=== PATIENT | male | born 1970 | race Caucasian/White ===

== ENCOUNTER 2018-12-13 12:24 | Emergency (ER) | payer BC ==
[2018-12-13 12:48] VITALS: BP 126/87
--- NOTE | 2018-12-13 13:10 | UC ---
UC General HPI - HPI Summary HPI Summary: 48-year-old male comes in to clinic today with a chief complaint of perianal pain tailbone pain left lower quadrant pain and fever. Patient started with some pain around the anus more than a week ago. It's been getting worse and he did see his primary care physician 3 days ago on Thursday. They did a rectal exam which the patient said was very painful. He also reports that they checked for blood and there was just a trace of blood. He's tried over-the- counter laxatives and he is having bowel movements however the perianal pain is now also has left lower quadrant and around his tailbone. Yesterday he felt like it a fever and checked his temperature and he reported a temperature of 100.3. He had been eating well until 2 days ago and then his appetite is decreased and he does not feel like eating. Today he feels fatigued. No prior history of abdominal surgeries. No history of ulcerative colitis or irritable bowel. Pain is worse by sitting on the area or transitioning from standing to sitting. - History of Current Complaint Chief Complaint: UCGI Stated Complaint: TAILBONE PAIN Time Seen by Provider: 12/13/18 12:45 Pain Intensity: 4 - Allergy/Home Medications Allergies/Adverse Reactions: Allergies Allergy/AdvReac Type Severity Reaction Status Date / Time No Known Allergies Allergy Verified 12/13/18 12:48 PMH/Surg Hx/FS Hx/Imm Hx Previously Healthy: Yes GI/ History: Gastroesophageal Reflux - Surgical History Surgical History: Yes Surgery Procedure, Year, and Place: RIGHT KNEE ARTHROSCOPY X2 - Family History Known Family History: Positive: Non-Contributory - Social History Alcohol Use: Daily Substance Use Type: None Smoking Status (MU): Former Smoker - Immunization History Most Recent Tetanus Shot: 2011 Review of Systems All Other Systems Reviewed And Are Negative: Yes Constitutional: Positive: Fever, Chills, Fatigue Skin: Positive: Negative Eyes: Positive: Negative ENT: Positive: Negative Respiratory: Positive: Negative Cardiovascular: Positive: Negative Gastrointestinal: Positive: Abdominal Pain, Other - SEE HPI Genitourinary: Positive: Negative Motor: Positive: Negative Neurovascular: Positive: Negative Musculoskeletal: Positive: Negative Neurological: Positive: Negative Psychological: Positive: Negative Is Patient Immunocompromised?: No Physical Exam Triage Information Reviewed: Yes Appearance: Well-Appearing, Well-Nourished, Pain Distress - MODERATE WITH MOVEMENT Vital Signs: Initial Vital Signs Temp 98.4 F 12/13/18 12:42 Pulse 101 12/13/18 12:42 Resp 20 12/13/18 12:42 BP 126/87 12/13/18 12:42 Pulse Ox 100 12/13/18 12:42 Vital Signs Reviewed: Yes Eye Exam: Normal Eyes: Positive: Conjunctiva Clear Neck: Positive: Supple Respiratory: Positive: Lungs clear, Normal breath sounds, No respiratory distress Cardiovascular: Positive: RRR Abdomen Description: Positive: Soft, Other: - Mildly tender left lower quadrant. No rebound. Bowel Sounds: Positive: Hypoactive Male Genital Exam: Positive: Other - On visual examination the patient does have hemorrhoid in the posterior aspect of the anus that is mildly tender to palpation and is firm to palpation. Is not erythematous. See any other soft tissue swellings or erythema. Musculoskeletal: Positive: Strength Intact, ROM Intact Neurological: Positive: Alert, Muscle Tone Normal Psychological: Positive: Age Appropriate Behavior Skin: Positive: Other - On visual examination the patient does have hemorrhoid in the posterior aspect of the anus that is mildly tender to palpation and is firm to palpation. Is not erythematous. See any other soft tissue swellings or erythema. Course/Dx - Course Course Of Treatment: I didn't see a hemorrhoid on examination that was tender to palpation. It is possible that the hemorrhoid is giving all of his pain with radiation to the left upper quadrant however with the reported fever and feeling ill I am concerned about the possibility of a perianal infection and recommended evaluation in the emergency department now. Patient will go by POV. - Diagnoses Provider Diagnosis: Anal pain, Left lower quadrant abdominal pain, Fever Discharge - Sign-Out/Discharge Documenting (check all that apply): Patient Departure All imaging exams completed and their final reports reviewed: No Studies - Discharge Plan Condition: Stable Disposition: HOME-RECOMMEND TO ED Referrals: Hugh Crook MD [Primary Care Provider] - Additional Instructions: GO DIRECTLY TO THE EMERGENCY DEPARTMENT FOR FURTHER EVALUATION OF YOUR ANAL PAIN , LEFT LOWER QUADRANT ABDOMINAL PAIN AND FEVER. - Billing Disposition and Condition Condition: STABLE Disposition: Home-Recommend to ED
== END 2018-12-13 13:17 | disposition home health service (06) ==
LOC: UCEAST 12:24
DX: K62.89 Other specified diseases of anus and rectum (principal); R10.32 Left lower quadrant pain; R50.9 Fever, unspecified; K21.9 Gastro-esophageal reflux disease without esophagitis; Z87.891 Personal history of nicotine dependence
CPT/HCPCS: 99212; G0463

== ENCOUNTER 2018-12-13 13:45 | Observation (INO) | payer BC ==
[2018-12-13] MEDS ORDERED: NS 0.9% 1000 ML** 1,000 ML IV ONE ×2 (15:35→16:20)
[2018-12-13 15:57] LABS: ABS Basophils 0.1 10^3/ul (0-0.2); ABS Lymphocytes 1.5 10^3/ul (1.0-4.8); ABS Neutrophils 13.4 10^3/ul (1.5-7.7); Eosinophil % 0.1 %; Hematocrit 46 % (42-52); Hemoglobin 15.6 g/dL (14.0-18.0); Lymphocyte % 9.1 %; Mean Corpuscular HGB Conc 34 g/dL (31-36); Mean Corpuscular Hemoglobin 29 pg (27-31); Mean Corpuscular Volume 85 fL (80-94); Mean Platelet Volume 7.8 fL (7.4-10.4); Nucleated Red Blood Cells % 0.1; Platelet Count 341 10^3/uL (150-450); Red Blood Count 5.46 10^6 /uL (4.18-5.48); Red Cell Distribution Width 13 % (10-15); White Blood Count 15.9 10^3/uL (3.5-10.8)
[2018-12-13] MEDS ORDERED: Morphine 4 MG/ML VIAL (1 ml) 4 MG/ML VIAL IV ONE ×2 (16:20→20:07)
[2018-12-13 16:37] LABS: ALT 26 U/L (7-52); Albumin 4.3 g/dL (3.2-5.2); Albumin/Globulin Ratio 1.2 (1-3); Alkaline Phosphatase 76 U/L (34-104); BUN/Creatinine Ratio 13.1 (8-20); Blood Urea Nitrogen 14 mg/dL (6-24); C Reactive Protein 88.29 mg/L (<8.01); CO2 Carbon Dioxide 24 mmol/L (22-32); Calcium 9.8 mg/dL (8.6-10.3); Chloride 99 mmol/L (101-111); Creatine Kinase 62 U/L (10-223); EGFR Non-African American 74.4 (>60); Globulin 3.7 g/dL (2-4); Glucose 102 mg/dL (70-100); Magnesium 1.9 mg/dL (1.9-2.7); Sodium 134 mmol/L (135-145)
--- NOTE | 2018-12-13 16:50 | ED ---
GI/ HPI - HPI Summary HPI Summary: This patient is a 48 year old M presenting to [facility] with a chief complaint of rectal pain radiating to tail bone since 12/06/18. Pt took stool softener, which improved rectal pain, but tailbone pain worsened. Pt has no Hx of similar symptoms. Pt went to [facility] and they sent him to the ED. Patient reports diarrhea, and fever of 100.3 night of 12/12/18, and temp this am was 99 degrees. Patient denies vomiting. Per triage, the patient rates the pain 3/10 in severity, sharp located in rectum worse when he sits or defecates. - History of Current Complaint Chief Complaint: EDRectalPain Time Seen by Provider: 12/13/18 15:40 Stated Complaint: abdominal/rectum pain per pt Hx Obtained From: Patient Onset/Duration: Started Days Ago Timing: Constant Severity: Mild Current Severity: Mild Pain Intensity: 3 Location of Pain: Anal, Other - tailbone Associated Signs and Symptoms: Positive: Diarrhea, Fever. Negative: Vomiting - Allergy/Home Medications Allergies/Adverse Reactions: Allergies Allergy/AdvReac Type Severity Reaction Status Date / Time No Known Allergies Allergy Verified 12/13/18 12:48 Home Medications: Home Medications Hydrocortisone SUPP* [Anusol HC Supp*] 25 mg MD BID PRN 12/13/18 [History Confirmed 12/13/18] Omeprazole (Nf) [Prilosec (NF)] 40 mg PO DAILY 12/13/18 [History Confirmed 12/13] PMH/Surg Hx/FS Hx/Imm Hx Endocrine/Hematology History: Denies: Hx Diabetes, Hx Thyroid Disease Cardiovascular History: Denies: Hx Hypertension Respiratory History: Denies: Hx Asthma, Hx Chronic Obstructive Pulmonary Disease (COPD) GI History: Denies: Hx Ulcer History: Denies: Hx Dialysis, Hx Renal Disease - Surgical History Surgery Procedure, Year, and Place: RIGHT KNEE ARTHROSCOPY X2 Infectious Disease History: No Infectious Disease History: Denies: Hx Hepatitis, Hx Human Immunodeficiency Virus (HIV), Traveled Outside the [place] in Last 30 Days - Family History Known Family History: Positive: Other - FHx of prostate cancer - Social History Alcohol Use: Weekly Hx Substance Use: No Substance Use Type: Reports: None Hx Tobacco Use: Yes Smoking Status (MU): Former Smoker Review of Systems Positive: Fever Positive: Diarrhea, Other - rectal pain radiating to tail bone . Negative: Vomiting All Other Systems Reviewed And Are Negative: Yes Physical Exam - Summary Physical Exam Summary: Constitutional: Well-developed, Well-nourished, Alert. (-) Distressed Skin: Warm, Dry HENT: Normocephalic; Atraumatic Eyes: Conjunctiva normal Neck: Musculoskeletal ROM normal neck. (-) JVD, (-) Stridor, (-) Nuchal rigidity Cardio: Rhythm regular, rate normal, Heart sounds normal; Intact distal pulses; Radial pulses are 2+ and symmetric. (-) Murmur Pulmonary/Chest wall: Effort normal. (-) Respiratory distress, (-) Wheezes, (-) Rales Abd: Soft, (-) tenderness, (-) Distension, (-) Guarding, (-) Rebound; Recatl: rectal TTP, Tenderness to the gluteal cleft with no obvious fluctuance Musculoskeletal: (-) Edema Lymph: (-) Cervical adenopathy Neuro: Alert, Oriented x3 Psych: Mood and affect Normal Triage Information Reviewed: Yes Vital Signs On Initial Exam: Initial Vitals Temp Pulse Resp BP Pulse Ox 99.2 F 104 20 121/91 96 12/13/18 13:47 12/13/18 13:47 12/13/18 13:47 12/13/18 13:47 12/13/18 13:47 Vital Signs Reviewed: Yes Diagnostics - Vital Signs Vital Signs Temp Pulse Resp BP Pulse Ox 12/13/18 15:41 100 118/71 98 12/13/18 15:40 109 97 12/13/18 13:47 99.2 F 104 20 121/91 96 - Laboratory Lab Results: Lab Results 12/13/18 12/13/18 12/13/18 Range/Units 15:46 15:47 15:47 WBC 15.9 H (3.5-10.8) 10^3/uL RBC 5.46 (4.18-5.48) 10^6 /uL Hgb 15.6 (14.0-18.0) g/dL Hct 46 (42-52) % MCV 85 (80-94) fL MCH 29 (27-31) pg MCHC 34 (31-36) g/dL RDW 13 (10-15) % Plt Count 341 (150-450) 10^3/uL MPV 7.8 (7.4-10.4) fL Neut % (Auto) 83.9 % Lymph % (Auto) 9.1 % [place] % (Auto) 6.0 % Eos % (Auto) 0.1 % Baso % (Auto) 0.9 % Absolute Neuts (auto) 13.4 H (1.5-7.7) 10^3/ul Absolute Lymphs (auto) 1.5 (1.0-4.8) 10^3/ul Absolute Monos (auto) 1.0 H (0-0.8) 10^3/ul Absolute Eos (auto) 0.0 (0-0.6) 10^3/ul Absolute Basos (auto) 0.1 (0-0.2) 10^3/ul Absolute Nucleated RBC 0.0 10^3/ul Nucleated RBC % 0.1 Sodium 134 L (135-145) mmol/L Potassium Pending Chloride 99 L (101-111) mmol/L Carbon Dioxide 24 (22-32) mmol/L Anion Gap Pending BUN 14 (6-24) mg/dL Creatinine 1.07 (0.67-1.17) mg/dL Est GFR ( Amer) 90.0 (>60) Est GFR (Non-Af Amer) 74.4 (>60) BUN/Creatinine Ratio 13.1 (8-20) Glucose 102 H (70-100) mg/dL Lactic Acid 1.2 (0.5-2.0) mmol/L Calcium 9.8 (8.6-10.3) mg/dL Magnesium 1.9 (1.9-2.7) mg/dL Total Bilirubin 0.80 (0.2-1.0) mg/dL AST Pending ALT 26 (7-52) U/L Alkaline Phosphatase 76 (34-104) U/L Total Creatine Kinase 62 (10-223) U/L C-Reactive Protein 88.29 H (<8.01) mg/L Total Protein 8.0 (6.4-8.9) g/dL Albumin 4.3 (3.2-5.2) g/dL Globulin 3.7 (2-4) g/dL Albumin/Globulin Ratio 1.2 (1-3) Lipase < 10 L (11.0-82.0) U/L Result Diagrams: 12/13/18 15:47 12/13/18 15:47 Lab Statement: Any lab studies that have been ordered have been reviewed, and results considered in the medical decision making process. - CT Pelvis CT CT Interpretation Completed By: Radiologist Summary of CT Findings: Pelvis CT reveals, per radiologist, IMPRESSION: There is a peripherally enhancing cystic collection in the posterior perianal region measuring 2.7 x 2.0 x 2.0 cm, suspicious for perianal abscess. ED physician has reviewed this radiology report. Re-Evaluation - Re-Evaluation First Eval Re-Evaluation Time: 20:06 Comment: Pt feels improved and still waiting for Pelvis CT read. GIGU Course/Dx - Course Course Of Treatment: 48-year-old male with rectal pain and now fever. Concern for perirectal abscess unable to visualize or palpate abscess. Check a CT of pelvis, we'll give Cipro and Flagyl for antibiotic coverage. Given morphine and 1 L of fluids - Diagnoses Provider Diagnoses: Perirectal abscess - Physician Notifications Discussed Care Of Patient With: Giuseppe Jaramillo Time Discussed With Above Provider: 21:05 Instructed by Provider To: Other - Discussed pt case with Dr. Jaramillo, who will come see him in the ED. 21:20 - spoke to Dr. Jaramillo, who is at bedside. 21:47 - Dr. Jaramillo will admit pt to go to OR Discharge - Sign-Out/Discharge Documenting (check all that apply): Patient Departure - Admit Patient Received Moderate/Deep Sedation with Procedure: No - Discharge Plan Condition: Stable Disposition: ADMITTED TO [facility] Referrals: Hugh Crook MD [Primary Care Provider] - - Billing Disposition and Condition Condition: STABLE Disposition: Admitted to [facility] - Attestation Statements Document Initiated by Karieibraghu: Yes Documenting Scribe: Bhumi Nix Provider For Whom Octavio is Documenting (Include Credential): Dr. Blake Jon MD Scribe Attestation: Bhumi Barr, scribed for Dr. Blake Jon MD on 12/13/18 at 2304. Scribe Documentation Reviewed: Yes Provider Attestation: The documentation as recorded by the Bhumi muñiz accurately reflects the service I personally performed and the decisions made by , Dr. Blake Jon MD Status of Scribe Document: Viewed
[2018-12-13 16:59] LABS: AST 18 U/L (13-39); Anion Gap 11 mmol/L (2-11)
[2018-12-13 17:21] LABS: Urine Appearance Clear; Urine Bilirubin Negative (Negative); Urine Blood Negative (Negative); Urine Color Yellow; Urine Glucose Negative (Negative); Urine Ketones Trace (Negative); Urine Nitrite Negative (Negative); Urine Protein Negative (Negative); Urine Specific Gravity 1.011 (1.010-1.030); Urine Urobilinogen Negative (Negative)
[2018-12-13] MEDS ORDERED: Acetaminophen TAB* 325 MG PO ONE (17:27)
[2018-12-13] MEDS ORDERED: metroNIDAZOLE IV 500 MG/100ML* 500 MG/100 ML BAG IVPB ONE (17:28)
[2018-12-13] MEDS ORDERED: Ciprofloxacin 400MG IVPREMIX(* 400 MG/200 ML BAG IVPB ONE (17:28)
[2018-12-13] MEDS ORDERED: Iohexol 300* (CONTRAST) 10 ML SDV IV ONE (18:36)
[2018-12-13] MEDS ORDERED: Midazolam* 1 MG/ML 2 ML VIAL (2 MG) ONE (22:21)
[2018-12-13] MEDS ORDERED: fentaNYL* 50 MCG/ML 2 ML VIAL (100 MCG VIAL) ONE (22:21)
[2018-12-13] MEDS ORDERED: Propofol* 10 MG/ML 20 ML BTL ONE (22:22)
[2018-12-13] MEDS ORDERED: Lidocaine 2% PF * 5 ML VIAL ONE (22:22)
[2018-12-13] MEDS ORDERED: Succinylcholine* 20 MG/ML 10 ML VIAL ONE (22:22)
[2018-12-13] MEDS ORDERED: Dexamethasone IV* 4 MG/ML 1 ML (4 MG) ONE (22:22)
[2018-12-13] MEDS ORDERED: Buffered Lidocaine 1% SYRIN* 1 ML/SYRINGE INTRADERM ONE (22:32)
[2018-12-13] MEDS ORDERED: diPHENhydraMINE IV* 50 MG/ML 1 ml VIAL (BENADRYL) IV PRN ×2 (22:33→23:40)
[2018-12-13] MEDS ORDERED: fentaNYL* 50 MCG/ML 2 ML VIAL (100 MCG VIAL) IV PRN ×2 (22:33→23:40)
[2018-12-13] MEDS ORDERED: Naloxone* 0.4 MG/ML 1 ML VIAL IV PRN ×2 (22:33→23:40)
[2018-12-13] MEDS ORDERED: DiMENhydriNATE IV* 50 MG/ML VIAL IV PUSH PRN ×2 (22:33→23:40)
[2018-12-13] MEDS ORDERED: HYDROcodone/ACETAMIN 5-325 MG* 1 TAB PO PRN ×2 (22:33→23:40)
[2018-12-13] MEDS ORDERED: Ondansetron INJ* 2 MG/ML VIAL IV PRN ×3 (22:33→23:44)
[2018-12-13] MEDS ORDERED: Famotidine IV* 10 MG/ML 2 ML (20 mg) ONE (22:47)
[2018-12-13] MEDS ORDERED: Cisatracurium* 2 MG/ML MDV 5 ML ONE (22:51)
[2018-12-13] MEDS ORDERED: Lactated Ringers 1000 ML Bag* 1,000 ML IV SCH ×2 (23:00)
[2018-12-13] MEDS ORDERED: HYDROmorphone INJ1* 1 MG/ML SYRINGE ONE (23:13)
[2018-12-13] MEDS ORDERED: Bupivacaine 0.5%* 50 ML MDV VIAL ONE (23:14)
[2018-12-13] MEDS ORDERED: Lidocaine 1% w EPI 1:200,000* SDV 30 ML VIAL ONE (23:19)
[2018-12-13] MEDS ORDERED: Neostigmine Methylsulfate* 3 MG/3 ML SYRINGE ONE (23:40)
[2018-12-13] MEDS ORDERED: Acetaminophen TAB* 325 MG PO PRN (23:44)
[2018-12-13] MEDS ORDERED: HYDROmorphone INJ1* 1 MG/ML SYRINGE IV SLOW PU PRN (23:44)
--- NOTE | 2018-12-13 23:44 | BRIEFOPN ---
Brief Operative Note - Operation Details Pre-Op Diagnosis: Benjamin-rectal abscess Post-Op Diagnosis: Same Procedures: Incision and drainage of benjamin-rectal abscess Surgeon(s)/Proceduralists: MD Clint Anesthesia: General with local, Dr. Acharya Estimated Blood Loss: minimal Findings: Posterior benjamin-rectal abscess Specimen(s)/Culture(s) Description: None Complications: None
[2018-12-13] MEDS ORDERED: NS 0.9% 1000 ML** 1,000 ML IV SCH (23:45)
--- NOTE | 2018-12-14 00:28 | HP ---
CC: Dr. Hugh Crook.* HISTORY AND PHYSICAL: DATE OF ADMISSION: 12/13/18. REASON FOR ADMISSION: Perirectal abscess. HISTORY OF PRESENT ILLNESS: Mr. Roscoe Crump is a 48-year-old gentleman, who was healthy other than having gastroesophageal reflux disease, who 6 days ago developed what he described as constipation. This was then became associated with some pain around his lower tail bone in perianal area. This had worsened progressively over several days and on Thursday he was seen in his primary care provider's office and was started on Anusol suppositories after an exam did not reveal significant findings. He has had no bright red blood per rectum or melena. He has not had any bowel movements for the last several days. He has had no difficulty voiding. Over the weekend, his pain worsened and he developed a low-grade fever. He has become anorexic. He has not had any fevers, shakes or chills. He has had no generalized abdominal discomfort. In the emergency room, he was noted to have a temperature of 101. Laboratory workup included a white blood cell count of 15,000. Electrolytes, BUN, and creatinine were within normal limits. He had a C-reactive protein of 88.9. He underwent a CT scan of the abdomen and pelvis. I did review these images. CT scan of the pelvis. This shows an enhancing fluid collection in the posterior perirectal area measuring 3 cm x 2 cm suspicious for an abscess. Surgical consultation was obtained. PAST MEDICAL HISTORY: Gastroesophageal reflux disease. PAST SURGICAL HISTORY: Knee surgery. MEDICATIONS: Include omeprazole and ibuprofen p.r.n. ALLERGIES: He has no known drug allergies. SOCIAL HISTORY: He is . 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 He has 2 young sons. He does not use tobacco. Drinks alcohol on a social basis. REVIEW OF SYSTEMS: Cerebrovascular: He has no dizziness or visual disturbances. Cardiovascular: No chest pain, shortness of breath. Endocrine: There has been no diabetes or thyroid disorder. Pulmonary: No wheezing or hemoptysis. GI: As per above. He has not had any bright blood per rectum or melena. There has been no protruding tissue or hemorrhoids. : No urgency or hematuria. PHYSICAL EXAMINATION GENERAL: He is a well-developed, well nourished male, appears to be somewhat uncomfortable especially when moving around the gurney. He is awake, alert, and conversive. VITAL SIGNS: Temperature 99.9, pulse 75, blood pressure 139/95. LUNGS: Clear to auscultation with normal respiratory effort. HEART: Regular rate and rhythm, without murmur, rubs or gallops. ABDOMEN: Soft, nondistended. He has normoactive bowel sounds. There are has no hernias. In the left lateral decubitus position, which is exquisitely tender on the spreading the buttock cheeks, there is an area of posterior erythema with induration, edema, and fluctuance consistent with a perirectal/ perianal abscess. This was a difficult examination and I did not evaluate the anterior perineal area well. EXTREMITIES: Show no cyanosis or edema. IMPRESSION: Perirectal abscess. This has been worsening over the past several days. He had a low-grade fever, significant leukocytosis, and anorexia. He has no abdominal discomfort. I discussed the findings with both him and his who were present in the emergency room. I recommend IV antibiotics, which he just has received here in the emergency room. This will require incision and drainage and I discussed the options and I feel that this will require anesthesia and we will proceed to the operating room this evening for incision and drainage with probable packing and/or drain placement. I feel that he will most likely be admitted due to the lateness of the hour. We will continue with IV antibiotics as well as wound care. PLAN: 1. Incision and drainage of perirectal abscess tonight. 2. He has been kept n.p.o. 3. He has already received IV antibiotics and is presently on IV fluids. The procedure was discussed with the patient and the risks of, but not limited to, bleeding, infection, further surgical intervention depending on a clinic course, injury to sphincter muscles resulting in incontinence, fistula formation , and the risks of anesthesia and discomfort were all explained. [id number]/[facility] #: [id number] MARJORIE
[2018-12-14] MEDS ORDERED: ZOSYN 3.375 GM x ONE DOSE over 30 miuntes IVPB ×2 (01:00)
[2018-12-14] MEDS: Ketorolac INJ* 30 MG/ML 1 ML VIAL IV SCH ×2 (01:09→07:19)
[2018-12-14] MEDS ORDERED: Zosyn per Pharmacy* NOTE FOLLOW UP PRN (01:47)
--- NOTE | 2018-12-14 02:13 | OP ---
CC: Dr. Hugh Crook * DATE OF OPERATION: 12/13/18 - ROOM #335 DATE OF : 74 SURGEON: Giuseppe Jaramillo MD POLICE SHIFT COMMANDER: None. ANESTHESIOLOGIST: Dr. Acharya. ANESTHESIA: General with local. PRE-OP DIAGNOSIS: Perirectal abscess. POST-OP DIAGNOSIS: Posterior perirectal abscess. OPERATIVE PROCEDURES: Incision and drainage of posterior perirectal abscess. ESTIMATED BLOOD LOSS: Minimal. SPECIMENS: None. WOUND CLASSIFICATION: 4. DRAINS: None. The abscess cavity was packed with 0.5 inch Nu gauze. COMPLICATIONS: None. FINDINGS: It was a rather large posterior midline perirectal abscess containing creamy pus. BRIEF HISTORY: Mr. Roscoe Crump is a 48-year-old gentleman presented to the emergency room with 3 to 4 days of worsening posterior perianal discomfort radiating up into the tail bone. He was noted to have a leukocytosis and a CT scan that showed a perirectal abscess. He is now being taken to the operating room for incision and drainage and the procedure including the risks were discussed with the patient. DESCRIPTION OF PROCEDURE: Written informed consent was obtained. The patient had received intravenous antibiotics in the operating room. He was taken to the operating room and general anesthesia was administered and he was placed in the prone jackknife position. Sequential compression devices were applied. The perineum and buttocks were prepped and draped in the usual sterile fashion. Time out verification was completed. On exam, there was induration and redness along the posterior half of the perianal area mainly in the posterior midline. 1% lidocaine mixed with 0.25% Marcaine was infiltrated extensively performing a perianal block and a radial incision was made with a 15 blade knife over the area of maximal induration and a large abscess cavity was entered. Large amount of creamy pus was drained and I opened up the incision more posteriorly as well as performing a cruciate incision to increase the size that I could place my index finger into the abscess cavity and break up any of the loculations posteriorly. This was not a true horse shoe abscess although it did extend both to the left and the right side of the midline. I irrigated thoroughly and made sure that there was no undrained pus. Hemostasis was assured. The wound was packed with 0.5 inch Nu gauze and covered with a dry gauze and ABD pad. The patient tolerated the procedure well and was taken to the recovery room in stable condition. [id number]/[facility] #: [id number] AMELIAD
[2018-12-14] MEDS: oxyCODONE/Acetamin 5/325 MG* TAB PO PRN ×2 (02:34→09:29)
--- OUTSIDE RECORDS SUMMARY | 2018-12-14 03:52 | XMS REPORT | Continuity of Care Document ---
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 Social History Type Date Description Comments Sex Unknown Tobacco Use Start: Unknown Nonsmoker ETOH Use Social Alcohol Tobacco Use Start: Unknown End: Unknown Patient is a former smoker Allergies, Adverse Reactions, Alerts Description No Known Drug Allergies Medications Active Medications SIG Qnty Indications Ordering Date Provider Hydrocortisone insert one 24units K64.8 Sondra Dudley 12/10/2018 Acetate suppository LEANN Zuñiga 25mg rectally twice a Suppository day as needed for hemmorrhoids Omeprazole Take 1 By Mouth 90caps Hugh Michelle 03/01/2013 40mg Every Day Armando Crook Capsules DR History Medications Nmrfmenq-Pswntihre-CV 2 drops three 10ml H60.91 Hugh Michelle 07/12/2018 - [id number] times a day x Armando Crook 07/22/2018 Suspension up to 10 days Immunizations Description No Information Available Vital Signs Date Vital Result Comment 12/10/2018 4:32pm BP Systolic 150 mmHg BP Diastolic 90 mmHg Heart Rate 60 /min Body Temperature 98.8 F Respiratory Rate 18 /min Weight 245.00 lb 07/28/2018 8:14am BP Systolic 120 mmHg BP Diastolic 78 mmHg Heart Rate 64 /min Body Temperature 97.8 F Respiratory Rate 16 /min Weight 242.00 lb Results Description No Information Available Procedures Description No Information Available Medical Devices Description No Information Available Encounters Type Date Location Provider Dx Diagnosis Office Visit 07/28/2018 [facility] Office Zoey Alejandro, H60.92 Unspecified otitis 8:00a PA externa, left ear Office Visit 07/12/2018 [facility] Office Hugh Crook, H60.91 Unspecified otitis 9:20a M.D. externa, right ear Assessments Date Code Description Provider 12/10/2018 K64.8 Other hemorrhoids Sondra Zuñiga, LEANN 07/28/2018 H60.92 Unspecified otitis externa, left ear Zoey Alejandro, PA 07/12/2018 H60.91 Unspecified otitis externa, right ear Hugh Crook M.D. Plan of Treatment 12/10/2018 - Sondra Zuñiga, NPK64.8 Other hemorrhoidsNew Medication: Hydrocortisone Acetate 25 mg - insert one suppository rectally twice a day as needed for hemmorrhoidsComments:Eat plenty of fiber, use the hydrocodone suppositories.If symptoms are not markedly improved in 3-4 days, please call or write and I can refer you to Dr. Jaramillo.AllComments:1. Patient has been queried about patient's goals/preferences and functional/lifestyle goals at relevant visits. If relevant, describe: Has been discussed, noted above2. Treatment goals as explainedto the patient: see above3. Are there barriers to meeting treatment goals? Yes If Yes, please describe: Barriers include possible insurance limits, disease process, and difficulty with lifestyle changes4. Self-Management goals as described to the patient: Yes, see above As always, we strongly encourage a healthy diet and making physical activity a part of your every day life. If you have questions about how or where to start, please contact the office. Functional Status Description No Information Available Mental Status Description No Information Available Referrals Description No Information Available
[2018-12-14] MEDS ORDERED: Piperacillin/Tazobactam VIAL*) 3.375 GM in NS 0.9% 100 ML* 100 ML IVPB SCH (05:00)
[2018-12-14] MEDS: HYDROmorphone INJ1* 1 MG/ML SYRINGE IV SLOW PU PRN ×2 (05:31→11:25)
--- NOTE | 2018-12-14 11:31 | PN ---
Progress Note - Progress Note Date of Service: 12/14/18 SOAP: Subjective: Feels better-ambulated to bathroom. Loose BM this morning-full continence Tolerating some po Objective: Temp Pulse Resp BP Pulse Ox 96.9 F 63 16 101/56 100 12/14/18 08:14 12/14/18 08:14 12/14/18 11:25 12/14/18 08:14 12/14/18 08:14 Intake & Output 12/12/18 12/13/18 12/14/18 12/15/18 06:59 06:59 06:59 06:59 Intake Total 1300 1080 Output Total 525 Balance 775 1080 Weight 235 lb Intake: IV Fluids 1200 980 LR 200 NS (0.9%) 980 IVPB 100 100 ABX - ZOSYN 100 100 Output: Urine 450 Liquid Stool 75 Other: Estimated Void Medium # Voids 1 PEX: Comfortable Lungs are clear Abd is soft and slightly distended. Bowel sounds are present Posterior posterior benjamin-rectal abscess cavity is clean without purulence, repacked Assessment: POD#1 s/p benjamin-rectal abscess drainage Doing well Plan: D/C home today Oral antibiotics and oral analgesia Sitz bathes Follow up in office 12/15
[2018-12-14 12:10] VITALS: BP 93/51
--- NOTE | 2018-12-14 13:07 | DS ---
CC: Dr. Hugh Crook * DISCHARGE SUMMARY: DATE OF ADMISSION: 12/13/18 DATE OF DISCHARGE: 12/14/18 PRINCIPAL DIAGNOSIS: Perirectal abscess. SECONDARY DIAGNOSIS: None. PROCEDURES: Incision and drainage of perirectal abscess. CONDITION ON DISCHARGE: Good. DISPOSITION: To home. MEDICINES ON DISCHARGE: 1. Augmentin 875 mg p.o. b.i.d. for 5 days with no refills. 2. Percocet 5/325 one tablet q.4 hours p.r.n. #10 with no refills. He was to resume his usual medications including omeprazole. He was also instructed to take ibuprofen or other nonsteroidals for pain management as initial line strategy. FOLLOWUP: An appointment was made to be seen at [facility] office on 12/15/18 at 4 p.m. WOUND INSTRUCTIONS: He was instructed to keep the abscess cavity covered with dry gauze or sanitary pad and change as necessary. Packing was in place on discharge and he was instructed to take sitz bath as much as possible. If the packing fell on, he did not need to call the office. HISTORY OF PRESENT ILLNESS: Mr. Roscoe Crump is a 48-year-old gentleman who presented to the emergency room with 4 to 5 days of worsening perianal/ perirectal discomfort. He had low-grade fever and anorexia and noted to have a white blood cell count of 15,000 in the emergency room. He had an induration with erythema in the posterior buttock area and a CT scan that was done by the emergency room physician showed findings consistent with a perirectal abscess. HOSPITAL COURSE: The patient was seen in surgical consultation in the emergency room and was taken to the operating room on the evening of presentation for incision and drainage of a posterior large perirectal abscess. This was packed and he was admitted postoperatively and started on IV antibiotics as well as IV analgesia. Postoperative day #1, he was doing well, afebrile and having several loose bowel movements. He had full continence, however. He was able to urinate and ambulate. His pain was well controlled with oral analgesia and the packing was changed just prior to discharge. He was discharged to home. [id number]/[facility] #: [id number] MTDD
== END 2018-12-14 15:00 | disposition home or self-care (01) ==
LOC: ED 13:45 → OR 23:39 → SSU 12-14 00:22
PROVIDERS: ADMIT Surgery; ATTEND Surgery
DX: K61.1 Rectal abscess (principal); R50.9 Fever, unspecified; Z79.899 Other long term (current) drug therapy; R19.7 Diarrhea, unspecified; Z87.891 Personal history of nicotine dependence
CPT/HCPCS: 36415; 72193; 80053; 81003; 82550; 83605; 83690; 83735; 85025; 86140; 87040; 93005; 96361; 96365; 96366; 96367; 96375; 96376; 99283; A9270-GY; G0378; J0330; J0744; J1100; J1170; J1885; J2001; J2250; J2270; J2543; J2704; J2710; J3010; J3490; Q9967